=== PATIENT | female | born 1985 | race African-American/Black ===

== ENCOUNTER 2022-05-14 22:05 | Emergency (ER) | payer MEDICAID ==
[~2022-05-14] VITALS: Ht 167.6 cm; Wt 78.0 kg
[2022-05-14] MEDS ORDERED: SODIUM CHLORIDE 0.9% 1,000 ML IV ONE (23:30)
[2022-05-15 00:02] LABS: BASOPHILS % 0.3 % (0.0-2.0); EOSINOPHILS % 0.3 % (0.0-5.0); HEMATOCRIT. 35.6 % (36.0-48.0); HEMOGLOBIN. 11.9 g/dL (12.0-16.0); LYMPHOCYTES % 13.3 % (20.0-50.0); MEAN CORPUSCULAR HEMOGLOBIN 30.2 pg (28.0-32.0); MEAN CORPUSCULAR VOLUME 90.6 fL (81.0-99.0); MEAN PLATELET VOLUME 7.2 fl (7.4-10.4); MONOCYTES % 4.6 % (2.0-8.0); NEUTROPHILS % 81.5 % (40.0-76.0); PLATELET 370 x1000/uL (130-400); RED BLOOD CELL COUNT 3.93 mill/uL (4.2-5.4); RED CELL DISTRIBUTION WIDTH 13.9 % (11.6-14.6)
[2022-05-15 00:11] LABS: CHLORIDE 106 mEq/L (98-107)
[2022-05-15 00:12] LABS: HCG SCREEN NEGATIVE
[2022-05-15 00:43] LABS: ETHANOL BLOOD < 10 mg/dL
[2022-05-15 01:03] LABS: *AMPHETAMINES SCREEN URINE NEGATIVE (NEGATIVE); *BARBITURATES SCREEN URINE NEGATIVE (NEGATIVE); *BENZODIAZEPINES SCREEN URINE NEGATIVE (NEGATIVE); *COCAINE SCREEN URINE NEGATIVE (NEGATIVE); CANNABINOID URINE SCREEN NEGATIVE (NEGATIVE); METHADONE URINE SCREEN NEGATIVE (NEGATIVE); OPIATES URINE SCREEN NEGATIVE (NEGATIVE); PHENCYCLIDINE URINE SCREEN NEGATIVE (NEGATIVE)
[2022-05-15] MEDS: FLUOXETINE HCL 10 MG CAPSULE PO SCH (11:54)
[2022-05-16] MEDS: FLUOXETINE HCL 10 MG CAPSULE PO SCH (11:54)
[2022-05-16 22:00] VITALS: BP 145/98
== END 2022-05-17 00:29 ==
LOC: ER 22:05
DX: R45.851 Suicidal ideations (principal); Z20.822 Contact with and (suspected) exposure to COVID-19; I49.9 Cardiac arrhythmia, unspecified
CPT/HCPCS: 36415; 80053; 80305; 80307; 80320; 80329; 84703; 85025; 93005; 96360; 96361; 99285; J7030; U0003; U0005; G0480